=== PATIENT | female | born 1995 | race Asian ===

== ENCOUNTER 2018-11-10 20:20 | Emergency (ER) | payer OTHER ==
--- NOTE | 2018-11-10 20:55 | ED ---
Laceration/Wound HPI - HPI Summary HPI Summary: 23-year-old female presents with splinter under right nail today. She was packing when a piece of the packing got stuck under the nail of her fourth finger. she was unable to remove it. Immunizations are up-to-date. Has no medical conditions. - History of Current Complaint Stated Complaint: "SPLINTER RT 4TH FINGER PER PT" Time Seen by Provider: 11/10/18 20:37 Pain Intensity: 1 - Allergy/Home Medications Allergies/Adverse Reactions: Allergies Allergy/AdvReac Type Severity Reaction Status Date / Time No Known Allergies Allergy Verified 11/10/18 20:33 PMH/Surg Hx/FS Hx/Imm Hx Endocrine/Hematology History: Denies: Hx Anticoagulant Therapy Respiratory History: Denies: Hx Asthma Infectious Disease History: No Infectious Disease History: Denies: Traveled Outside the [place] in Last 30 Days - Family History Known Family History: Positive: Non-Contributory - Social History Substance Use Type: Reports: None Smoking Status (MU): Never Smoked Tobacco Review of Systems Negative: Fever Negative: Chest Pain Negative: Shortness Of Breath Positive: Other - splinter right finger All Other Systems Reviewed And Are Negative: Yes Physical Exam Triage Information Reviewed: Yes Vital Signs On Initial Exam: Initial Vitals Temp Pulse Resp BP Pulse Ox 98.9 F 66 12 104/80 100 11/10/18 20:32 11/10/18 20:32 11/10/18 20:32 11/10/18 20:32 11/10/18 20:32 Vital Signs Reviewed: Yes Appearance: Positive: Well-Appearing Skin: Positive: Warm, Dry, Other - splinter under right nail of 4th finger Head/Face: Positive: Normal Head/Face Inspection Eyes: Positive: Normal, Conjunctiva Clear ENT: Positive: Pharynx normal Respiratory/Lung Sounds: Positive: Clear to Auscultation, Breath Sounds Present Cardiovascular: Positive: Normal, RRR Musculoskeletal: Positive: Normal, Strength/ROM Intact - right hand, Other - good pulses Neurological: Positive: Normal Psychiatric: Positive: Normal Diagnostics - Vital Signs Vital Signs Temp Pulse Resp BP Pulse Ox 11/10/18 20:32 98.9 F 66 12 104/80 100 - Laboratory Lab Statement: Any lab studies that have been ordered have been reviewed, and results considered in the medical decision making process. Laceration Repair Course/Dx - Course Course Of Treatment: 23-year-old female presents with splinter under right nail today. She was packing when a piece of the packing got stuck under the nail of her fourth finger. she was unable to remove it. Immunizations are up-to-date. Has no medical conditions. On exam splinter under her right fourth finger. Performed a digital block. Was able to grab the splinter and remove it fully. Wash area. Told to keep the area clean. told apply Neosporin. Told to watch for any signs of infection. Patient understands agrees plan. - Differential Dx Differental Diagnoses: Laceration, Other - foreign body - Clinical Impression Provider Diagnoses: Splinter in skin Discharge - Sign-Out/Discharge Documenting (check all that apply): Patient Departure Patient Received Moderate/Deep Sedation with Procedure: No - Discharge Plan Condition: Good Disposition: HOME Additional Instructions: wash hands at least twice a day can apply neosporin to the area watch for any signs of infection such as fever, spreading redness and return to ED or if develop any new or worsening symptoms - Billing Disposition and Condition Condition: GOOD Disposition: Home
[2018-11-10 21:18] VITALS: BP 0/0
== END 2018-11-10 21:18 | disposition home or self-care (01) ==
LOC: ED 20:20
DX: S60.454A Superficial foreign body of right ring finger, initial encounter (principal); W45.8XXA Other foreign body or object entering through skin, initial encounter
CPT/HCPCS: 99282